=== PATIENT | female | born 1975 | race Two or more races ===

== ENCOUNTER 2022-12-21 22:17 | Emergency (ER) | payer BC, SELFPAY ==
[2022-12-21 22:28] VITALS: BP 140/90; PULSE 81; RESP 16; TEMP 36.7; O2SAT 99; BMI 30.3
--- NOTE | 2022-12-21 23:08 | CT_ITS ---
The [address] [address] Patient Name: ALANIS LEE MRN: [id number] date: 1975 Sex: F Assigned Patient Location: ER Current Patient Location: ER Accession/Order Number: [id number] Exam Date: 12/21/2022 23:59 Report Date: 12/22/2022 00:33 At the request of: CELE MARKER Procedure: CT abdomen pelvis w con EXAM: CT abdomen pelvis w con HISTORY: Abdominal pain, nausea, back pain. COMPARISON: CT abdomen pelvis 12/05/2019 TECHNIQUE: Multiple axial views CT abdomen pelvis after administration of 100 mL Omnipaque 300 IV contrast. Coronal and sagittal reformats. FINDINGS: Visualized lung bases and cardiac apex are unremarkable. Small hiatal hernia. Stomach is underdistended. No perigastric inflammatory stranding. Liver, gallbladder, pancreas, spleen, adrenal glands, kidneys, urinary bladder, appendix, and other pelvic structures are unremarkable. Uterus is surgically absent. Bilateral ureteral jets within the urinary bladder are seen on the delayed images. Moderate amount of stool within the right large bowel. No evidence for small bowel obstruction, large ascites, or free air. No acute bony abnormality. IMPRESSION: No radiopaque renal/ureteral/urinary bladder stone, hydronephrosis, or perinephric fluid collection. No striated nephrogram of the bilateral renal kidneys. No urinary bladder wall thickening/perivesical stranding. Small hiatal hernia. Electronically authenticated by: NAVA OSMAN Date: 12/22/2022 00:33
[2022-12-21] MEDS: ONDANSETRON PF 4 MG/2 ML VIAL IV (23:34)
[2022-12-21] MEDS: 0.9 % SODIUM CHLORIDE 1,000 ML 100 ML IV (23:34)
[2022-12-21] MEDS: KETOROLAC TROMETHAMINE 30 MG/ML VIAL IVP (23:34)
[2022-12-21 23:39] LABS: Basophils Absolute Auto 0.1 10^3/uL (0.0-0.1); Basophils Percent Auto 0.6 % (0.2-2.0); Eosinophils Absolute Auto 0.2 10^3/uL (0.0-0.7); Eosinophils Percent Auto 2.2 % (0.9-7.0); Hematocrit 37.5 % (36.0-48.0); Hemoglobin 12.9 g/dL (12.0-16.0); Immature Granulocytes Abs Auto 0.02 10^3/uL (0.00-0.03); Immature Granulocytes Pct Auto 0.3 % (0.0-0.5); Lymphocytes Absolute Auto 1.6 10^3/uL (1.2-3.8); Lymphocytes Percent Auto 21.1 % (20.5-60.0); Mean Corpuscular HGB Conc 34.4 g/dL (29.9-35.2); Mean Corpuscular Hemoglobin 31.2 pg (26.7-34.0); Mean Corpuscular Volume 90.6 fL (81.0-99.0); Mean Platelet Volume 10.9 fL (9.5-13.5); Monocytes Absolute Auto 0.9 10^3/uL (0.3-0.8); Monocytes Percent Auto 11.3 % (1.7-12.0); Neutrophils Percent Auto 64.5 % (43.0-75.0); Platelet Count 278 10^3/uL (150-450); Red Blood Count 4.14 10^6/uL (4.20-5.40); Red Cell Distribution Width 13.9 % (11.0-15.0); White Blood Count 7.7 10^3/uL (4.0-11.0)
[2022-12-21 23:42] LABS: HCG Qualitative Urine* NEGATIVE (NEGATIVE)
[2022-12-21 23:57] LABS: Lactate/Lactic Acid 0.8 mmol/L (0.4-2.0)
[2022-12-21 23:58] LABS: Alanine Aminotransferase 13 U/L (14-59); Albumin Globulin Ratio 0.9; Albumin Level 3.6 g/dL (3.4-5.0); Alkaline Phosphatase 48 U/L (46-116); Aspartate Amino Transferase 14 U/L (15-37); BUN Creatinine Ratio 8.7; Bilirubin Direct 0.1 mg/dL (0.0-0.2); Bilirubin Total 0.3 mg/dL (0.2-1.0); Calcium 8.9 mg/dL (8.5-10.1); Carbon Dioxide 24.5 mmol/L (21.0-32.0); Chloride 98 mmol/L (98-107); Estimated GFR (African America >60 (>=60); Estimated GFR (Non-African Ame >60 (>=60); Globulin 4.1 g/dL; Glucose 96 mg/dL (74-106); Potassium 3.5 mmol/L (3.5-5.1); Sodium 133 mmol/L (136-145); Total Protein 7.7 g/dL (6.4-8.2); Troponin I High Sensitivity 4.7 pg/mL (4.0-51.3)
--- NOTE | 2022-12-22 | ED.GENADUL1 ---
HPI - General Adult General Chief complaint: Abdominal Pain Stated complaint: Abdominal PAIN Time Seen by Provider: 12/21/22 22:50 Source: patient Mode of arrival: walk-in Limitations: no limitations History of Present Illness HPI narrative: This 47-year-old female presents for evaluation of generalized abdominal pain and cramping with low back pain, mild shortness of breath and nausea with a dry mouth. The patient states that she recently returned from [place]. After coming back from [place] she had a urinary tract infection with blood in her urine. She is currently being treated with Bactrim. She has not had a fever and states that her urine has cleared up however she has severe nausea with abdominal cramping and low back pain. She has not had a fever. She denies any chest pain. She does not smoke. She is not on control. She has no lower extremity pain or swelling. She states the abdominal cramping did start prior to going to [place]. She was recently started on Adipex as well. She feels that she is not tolerating the Adipex well and may need to stop taking it. Onset (ago): day(s) (2 weeks of abd pain, 1 day of nausea) Location: Reports abdomen Radiation: Reports back Severity: moderate Quality: Reports constant and other (cramping) Pain Consistency: Reports intermittent Relieving factors: Reports none Related Data Allergies Allergy/AdvReac Type Severity Reaction Status Date / Time No Known Drug Allergies Allergy Verified 12/21/22 22:33 Review of Systems ROS Status of ROS 10 or more systems reviewed and unremarkable except as noted in history and below Exam Constitutional Vital Signs - 24 hr 12/21/22 22:28 Temperature 98.1 F Pulse Rate [Monitor] 81 Respiratory Rate 16 Blood Pressure [Left Arm] 140/90 H Pulse Oximetry 99 Oxygen Delivery Method Room Air Documenting provider has reviewed patient's vital signs: yes Common normals: no apparent distress (Uncomfortable but nontoxic-appearing female, no resp distress) General appearance: cooperative, well kempt and well developed HENMT Common normals: normocephalic and head/scalp atraumatic Eye Common normals: PERRL and conjunctivae normal Respiratory Common normals: normal respiratory effort, no retractions, no use of accessory muscles and clear to auscultation bilaterally Effort & inspection: able to speak in complete sentences Cardio Common normals: regular rate, regular rhythm, S1 normal heart sound, S2 normal heart sound, no gallops, no clicks, no murmurs and no rub GI Common normals: soft to palpation and non-tender (Generalized abdominal tenderness with no focal rebound guarding or rigidity) Inspection: other (dry heaves) Auscultation: normoactive bowel sounds Back & Pelvis Common normals: no CVA tenderness, thoracic and lumbar spine normal to inspection, no thoracic nor lumbar tenderness and thoraco-lumbar ROM normal Extremity Common normals: normal to inspection, full ROM and normal capillary refill Neuro Common normals: oriented x3, CN's II-XII intact bilaterally, moves all extremities, no focal motor deficits and no sensory deficits noted Psych Common normals: mental status grossly normal, thought process normal, cooperative, affect normal and speech normal Course Vital Signs Vital signs: Vital Signs Temperature 98.1 F 12/21/22 22:28 Pulse Rate 81 12/21/22 22:28 Respiratory Rate 16 12/21/22 22:28 Blood Pressure 140/90 H 12/21/22 22:28 Pulse Oximetry 99 12/21/22 22:28 Oxygen Delivery Method Room Air 12/21/22 22:28 Temperature 98.1 F 12/21/22 22:28 Pulse Rate 81 12/21/22 22:28 Respiratory Rate 16 12/21/22 22:28 Blood Pressure 140/90 H 12/21/22 22:28 Pulse Oximetry 99 12/21/22 22:28 Oxygen Delivery Method Room Air 12/21/22 22:28 Medical Decision Making MDM Narrative Medical decision making narrative: This 47-year-old female presents for evaluation of multiple complaints. She has been having abdominal cramping for the past several weeks and now is having low back pain. He is currently on Bactrim after she had an episode of hemorrhagic cystitis. She has not had a fever. She does have nausea but has not been vomiting. She states her mouth is extremely dry. She was recently placed on Adipex by her family physician. She states that while in her white she was scuba diving snorkeling, jumping off a water falls and other sports related activities. She states this is not uncommon for her and does not feel that she was injured causing her back pain. She has not had any diarrhea but does have chronically loose stools. Upon arrival she did appear to be uncomfortable holding a pillow to her belly and rocking back and forth. My thought was that she may have a kidney infection, kidney stone or complicated urinary tract infection. An IV was placed and she was given IV fluids, Zofran and Toradol. This provided her minimal relief however she was driving and she was remedicated with Tylenol. She did have mild improvement in her symptoms after the Tylenol. Routine labs are reviewed. She has a normal d-dimer. Normal lactic acid and normal lipase. Normal white count and hemoglobin. She has normal electrolytes. Her urine does not appear to be infected at this time. CT scan of the abdomen and pelvis which was read by radiology does not show any sign of kidney infection, kidney stone or other intra-abdominal or pelvic abnormality. The results of the labs and CT scan were discussed with her and she was given a copy of the CT scan to share with her family physician. She still appears to be moderately uncomfortable. I offered her hospitalization for further evaluation and treatment but she declines. She wishes to be released at this time because she has to go to work in the morning. She will be dispensed 2 [place] prior to discharge as well as given an extra dose of Zofran and a dose of oral Bentyl. She will be discharged home with prescription for [place], Bentyl and Zofran. I encouraged her to drink plenty of fluids. She will continue taking her Bactrim as was prescribed by her PCP for her hemorrhagic cystitis. Differential Diagnosis Differential Diagnosis: Kidney stone, pyelonephritis, complicated urinary tract infection Lab Data Lab results reviewed: Yes I reviewed the patient's lab results Lab results narrative: Labs are normal, patient had a normal white count and hemoglobin. Electrolytes are normal. Lipase is normal. Urinalysis is negative for infection but does show mild ketones.D-dimer is normal. Labs: Lab Results 12/21/22 12/22/22 Range/Units 23:25 00:00 WBC 7.7 (4.0-11.0) 10^3/uL RBC 4.14 L (4.20-5.40) 10^6/uL Hgb 12.9 (12.0-16.0) g/dL Hct 37.5 (36.0-48.0) % MCV 90.6 (81.0-99.0) fL MCH 31.2 (26.7-34.0) pg MCHC 34.4 (29.9-35.2) g/dL RDW 13.9 (11.0-15.0) % Plt Count 278 (150-450) 10^3/uL MPV 10.9 (9.5-13.5) fL Neut % (Auto) 64.5 (43.0-75.0) % Lymph % (Auto) 21.1 (20.5-60.0) % [place] % (Auto) 11.3 (1.7-12.0) % Eos % (Auto) 2.2 (0.9-7.0) % Baso % (Auto) 0.6 (0.2-2.0) % Neut # (Auto) 5.0 (1.4-6.5) 10^3/uL Lymph # (Auto) 1.6 (1.2-3.8) 10^3/uL [place] # (Auto) 0.9 H (0.3-0.8) 10^3/uL Eos # (Auto) 0.2 (0.0-0.7) 10^3/uL Baso # (Auto) 0.1 (0.0-0.1) 10^3/uL Abs Immat Gran (auto) 0.02 (0.00-0.03) 10^3/uL Imm/Tot Granulo (auto) 0.3 (0.0-0.5) % D-Dimer 0.50 (<=0.59) mg/L FEU Sodium 133 L (136-145) mmol/L Potassium 3.5 (3.5-5.1) mmol/L Chloride 98 (98-107) mmol/L Carbon Dioxide 24.5 (21.0-32.0) mmol/L Anion Gap 14.0 BUN 8.0 (7.0-18.0) mg/dL Creatinine 0.92 (0.55-1.02) mg/dL Est GFR ( Amer) >60 (>=60) Est GFR (Non-Af Amer) >60 (>=60) BUN/Creatinine Ratio 8.7 Glucose 96 (74-106) mg/dL Lactate 0.8 (0.4-2.0) mmol/L Calcium 8.9 (8.5-10.1) mg/dL Total Bilirubin 0.3 (0.2-1.0) mg/dL Direct Bilirubin 0.1 (0.0-0.2) mg/dL AST 14 L (15-37) U/L ALT 13 L (14-59) U/L Alkaline Phosphatase 48 (46-116) U/L Troponin I High Sens 4.7 (4.0-51.3) pg/mL Total Protein 7.7 (6.4-8.2) g/dL Albumin 3.6 (3.4-5.0) g/dL Globulin 4.1 g/dL Albumin/Globulin Ratio 0.9 Lipase 67.0 L (73.0-393.0) U/L Urine Color Lt. yellow (YELLOW) Urine Clarity Clear (CLEAR) Urine pH 6.0 (5.0-9.0) Ur Specific [place] 1.010 (1.005-1.025) Urine Protein Negative (NEG/TRACE) mg/dL Urine Glucose (UA) Negative (NEGATIVE) mg/dL Urine Ketones 15 A (NEGATIVE) mg/dL Urine Occult Blood Negative (NEGATIVE) Urine Nitrite Negative (NEGATIVE) Urine Bilirubin Negative (NEGATIVE) Urine Urobilinogen 0.2 (0.2-1.0) EU/dL Ur Leukocyte Esterase Negative (NEGATIVE) Urine HCG, Qual Negative (NEGATIVE) Discharge Plan Discharge Chief Complaint: Abdominal Pain Clinical Impression: Low back pain, Abdominal pain Patient Disposition: Home, Self-Care Time of Disposition Decision: 01:58 Instructions: Acute Low Back Pain (ED), Abdominal Pain (ED), Back Pain (ED) Stand Alone Forms: Portal Instructions Referrals: Ange Luque MD [Primary Care Provider] - 1 week
--- NOTE | 2022-12-22 01:13 | PC.NURSE ---
Pt laying on cart States that she is still having abd pain #7 on scale. pt aware that awaiting some of the test results
[2022-12-22 01:30] LABS: Bilirubin Urine NEGATIVE (NEGATIVE); Blood Urine NEGATIVE (NEGATIVE); Clarity Urine CLEAR (CLEAR); Color Urine LT. YELLOW (YELLOW); Glucose Urine UA NEGATIVE (NEGATIVE); Ketones Urine 15 mg/dL (NEGATIVE); Leukocyte Esterase Urine NEGATIVE (NEGATIVE); Nitrite Urine NEGATIVE (NEGATIVE); Protein Urine NEGATIVE (NEG/TRACE); Urine Microscopic Indicated NO; Urobilinogen Urine 0.2 EU/dL (0.2-1.0)
[2022-12-22] MEDS: HYDROCODONE/ACETAMINOPHEN 5-325 MG TABLET 2 TAB PO (02:19)
[2022-12-22] MEDS: DICYCLOMINE HCL 10 MG CAPSULE 20 MG PO (02:19)
== END 2022-12-22 02:45 | disposition home or self-care (01) ==
PROVIDERS: Emergency Provider Emergency Medicine; PCP Family Medicine
DX: R10.9 Unspecified abdominal pain (principal); M54.50 Low back pain, unspecified; Z87.440 Personal history of urinary (tract) infections
CPT/HCPCS: 36415; 74177; 80053; 80076; 81003; 83605; 83690; 84484; 84703; 85025; 85378; 96374; 96375; 99285

== ENCOUNTER 2025-05-22 07:00 | Outpatient (OUT) | payer OTHER, SELFPAY ==
--- OUTSIDE RECORDS SUMMARY | 2024-04-02 11:15 | XMS_ITS | Continuity of Care Document ---
Author Organization [facility] Address [address] [place] [address] Phone Care Team Providers Care Supervisor Securities V[employer] Name Role Phone Gelacio Lucio Unavailable Unavailable Procedures Procedure Date IMMUNIZATION ADMIN FLU VACCINE NO PRESERV 3 & > Covid-19 Vaccine Administration 024 Covid-19 Vaccine, 50 Mcg Moderna 12y Plu s IMMUNIZATION ADMIN HEP B VACCINE, ADULT, IM ROUTINE VENIPUNCTURE Covid-19 Vaccine Administration 024 Covid-19 Vaccine, 50 Mcg Moderna 12y Plu s IMMUNIZATION ADMIN TDAP VACCINE >7 IM Advance Directives Directive Yes / No Effective Date File Name No Information Encounters Encounter Description Practice Location Reason(s) For Visit Diagnoses Date Provider Providers Copied on Encounter [facility], [address] [place] [address], [id number] , [place] tel: [phone] [facility] No Information 4 Visci DO Gelacio. [address] [place] [address], [id number] , [place]. tel: [phone] [facility], [address] [place] [address], [id number] , [place] tel: [phone] [facility] No Information 4 Visci DO Gleacio. [address] [place] [address], [id number] , [place]. tel: [phone] [facility], [address], [place], [id number] , [place] tel:[phone] [facility] lab draw (chief complaint) Encounter for screening for respiratory tuberculosisEncounter for antibody response examinationEncounter for screening for other viral diseases Mathewi Gelacio. [address] [place] [address], [id number] , [place]. tel:[phone] Family History Family Member Type Diagnosis Age At Onset No Information Immunizations Vaccine Date Status Comments Fluarix/Flulaval administered Source: New Immunization Record Spikevax 12y+ administered Source: New Im munization Record Hep B, adult, 3 dose administered Source: New Immunization Record Tdap (Boostrix) administered Source: New Immunization Record Spikevax 12y+ administered Source: New Im munization Record Payers Payer name Insurance type Covered green party ID Authorramiroa tileno(s) [employer] [place] CI [id number] [employer] [place] CI [id number] Self Pay Cap [id number] Self Pay Cap [id number] Self Pay Cap [id number] Social History Type Description Quantity Date Captured Comments Alcohol Use Details Unknown Caffeine Use Details Unknown Tobacco Use Status No Information Smoking Status No Information Sex Female Sexual Orientation Straight or heterosexual Dec Gender Identity Female Chief Complaint And Reason For Visit No Information Reason For Referral Reason For Referral No Information Plan Of Treatment Date Type Action Status Goal Hep A. Due on du e Goal HPV. Due on due Goal Lipid panel. Due on 024 due Goal Depression screening. Due on due Goal Tdap Vaccine. Due on 2033 due Goal Unhealthy drug use screening . Due on due Goal PRAPARE ASSESSMENT. Due on O due Goal Influenza vaccine. Due on Oc t due Goal Hepatitis C screening. Due o n due Goal Tdap due Goal Hep A. Due on du e Goal Lipid panel. Due on due Goal Unhealthy drug use screening . Due on due Goal Tdap due Goal Hepatitis C screening. Due o n due Goal Tdap Vaccine. Due on 2033 due Goal HPV. Due on due Goal Depression screening. Due on due Goal Influenza vaccine. Due on Au due Goal PRAPARE ASSESSMENT. Due on A due Goal Tdap Vaccine. Due on 2023 due Goal Tdap. Due on due Goal HPV. Due on due Goal Depression screening. Due on due Goal Hepatitis C screening. Due o n due Goal Influenza vaccine. Due on due Goal Unhealthy drug use screening . Due on due Goal PRAPARE ASSESSMENT. Due on J due Goal Lipid panel. Due on due History Of Present Illness Encounter Date Complaint History Of Prese nt Illness lab draw Patient here for pre-emplyment lab draw. Blaine RN Functional Status Date Functional Assessmen t No Information Instructions Date Instruction Additional Infor mation No Information Assessments Type Assessment Date No Information Patient Care Teams Name Effective Dates (start - stop) Status Members No Information
--- OUTSIDE RECORDS SUMMARY | 2024-04-02 11:15 | XMS_ITS | Continuity of Care Document ---
Author Organization [facility] Address [address] [place] [address] Phone Care Team Providers Care Environmental Health Nurse Name Role Phone Gelacio Lucio Unavailable Unavailable [...] Diagnoses Date Provider Providers Copied on Encounter [facility], [address] [place] [address], [id number] , [place] tel: [phone] [facility] No Information 4 Visci DO Gelacio. [address] [place] [address], [id number] , [place]. tel: [phone] [facility], [address] [place] [address], [id number] , [place] tel: [phone] [facility] No Information 4 Visci DO Gelacio. [address] [place] [address], [id number] , [place]. tel: [phone] [facility], [address] [place], [place], [id number] , [place] tel:[phone] [facility] lab draw (chief complaint) Encounter for screening for respiratory tuberculosisEncounter for antibody response examinationEncounter for screening for other viral diseases Mathewi DO Gelacio. [address] [place], [place], [id number] , [place]. tel:[phone] Family History Family Member Type Diagnosis Age At Onset No Information Immunizations Vaccine Date Status Comments Fluarix/Flulaval administered Source: New Immunization Record Spikevax 12y+ administered Source: New Im munization Record Hep B, adult, 3 dose administered Source: New Immunization Record Tdap (Boostrix) administered Source: New Immunization Record Spikevax 12y+ administered Source: New Im munization Record Payers Payer name Insurance type Covered alliance party ID Authorramiroa tileno(s) [employer] [place] CI [id number] [employer] [place] CI [id number] Self Pay Cap [id number] Self Pay Cap [id number] Self Pay Cap [id number] Social History Type Description Quantity Date Captured Comments Alcohol Use Details Unknown Caffeine Use Details Unknown Tobacco Use Status No Information Smoking Status No Information Sex Female Sexual Orientation Straight or heterosexual Dec Gender Identity Female Chief Complaint And Reason For Visit No Information Reason For Referral Reason For Referral No Information Plan Of Treatment Date Type Action Status Goal Tdap due Goal Hep A. Due on du e Goal HPV. Due on due Goal Lipid panel. Due on 024 due Goal Depression screening. Due on due Goal Tdap Vaccine. Due on 2033 due Goal Unhealthy drug use screening . Due on due Goal PRAPARE ASSESSMENT. Due on O ct due Goal Influenza vaccine. Due on Oc t due Goal Hepatitis C screening. Due o n due Goal Hep A. Due on du [...]
--- OUTSIDE RECORDS SUMMARY | 2024-05-19 03:15 | XMS_ITS ---
Author Organization [facility] Address [address] [place] [address] Care Team Providers Care Program Analyst Name Role Phone Espinoza Aviles Primary Care Provider REASON FOR VISIT 3 month f/u Social History Sex Assigned At : Social History Observation Description Sex Assigned At Female Encounters Encounter Location Date Provider Diagnosis [address] [place] [address] 2023 Espinoza Aviles Plan Of Treatment No Information Progress Notes * ALANIS WILLIS LDOB: 5 (50 yo F)Acc No.[id number]:05/19/2024 Behavioral Health Patient: Sharon ALANIS KINGSTON :?CHRISTIANO SiddiquiPDOB:1975???Age:49 Y???Sex: FemaleDate:05/19/2024hone:[phone]:[address] [place] [id number] Subjective: * Chief Complaints: * 3 month f/u Billing Information: * Procedure Codes: * Electronic signature of HEMANT Siddiqui on 05/19/2025 at 02:01 PM ESTSign off status: Pending * Provider: HEMANT Hodges Date: 07/19/2023 Generated for Printing/Faxing/eTransmitting on:?05/19/2025 02:01 PM EST
--- OUTSIDE RECORDS SUMMARY | 2024-05-19 03:15 | XMS_ITS ---
Author Organization [facility] Address [address] [place] [address] Care Team Providers Care Security Solutions Engineer Name Role Phone Espinoza Aviles Primary Care Provider [phone] REASON FOR VISIT 3 month f/u Social History Sex Assigned At : Social History Observation Description Sex Assigned At Female Encounters Encounter Location Date Provider Diagnosis [address] [place] [address] 2023 Espinoza Aviles Plan Of Treatment No Information Progress Notes * ALANIS WILLIS LDOB: [birth year] (50 yo F)Acc No.[id number]:05/19/2024 Behavioral Health Patient: Sharon ALANIS KINGSTON :?CHRISTIANO SiddiquiPDOB:1975???Age:49 Y???Sex: FemaleDate:05/19/2024hone:[phone]:[address] [place] [id number] Subjective: * Chief Complaints: * 3 month f/u Billing Information: * Procedure Codes: * Electronic signature of HEMANT Siddiqui on 05/22/2025 at 07:03 AM ESTSign off status: Pending * Provider: HEMANT Hodges Date: 07/19/2023 Generated for Printing/Faxing/eTransmitting on:?05/22/2025 07:03 AM EST
--- OUTSIDE RECORDS SUMMARY | 2025-05-07 15:20 | XMS_ITS | Encounter Summary ---
Author Organization [facility] Address [address] [facility] [place] [address] Care Team Providers Care Senior Underwriter Name Role Phone Ange Luque MD Primary Care Provider [phone] Reason for Visit * ReasonCommentsConsultDiscuss hormones Encounter Details DateTypeDepartmentCare Team (Latest Contact Info)Phcecervypm51/06/2025 3:20 PM ESTOffice Visit [facility] [place] OBJES[facility] [address] [place] [address] Soledad Sarmiento PA [address] [place] [address] Hormone disturbance; Hormone disorder Social History Tobacco UseTypesPacks/DayYears UsedDateSmoking Tobacco: Never Assessed CommentsUnknownSex and Gender InformationValueDate RecordedSex Assigned at Not on fileLegal HsxYzkhph92/15/2023 11:47 PM EDTGender IdentityNot on file Sexual OrientationNot on filedocumented as of this encounter Progress Notes * LILLI Langford - 05/07/2025 3:20 PM EST Reason for Appointment: Patient ID: Divya Preciado is a 50 y.o. female who presents for Consult (Discuss hormones) Patient presents today for to discuss hormone issues MEDICATIONS Current Outpatient Medications Medication Instructions buPROPion XL (Wellbutrin XL) 300 MG 24 hr tablet ALLERGIES No Known Allergies PROBLEMS Active Ambulatory Problems Diagnosis Date Noted No Active Ambulatory Problems Resolved Ambulatory Problems Diagnosis Date Noted No Resolved Ambulatory Problems No Additional Past Medical History HISTORY PAST MEDICAL HISTORY SOCIAL HISTORY No past medical history on file. Social History Tobacco Use Smoking status: Not on file Smokeless tobacco: Not on file Substance Use Topics Alcohol use: Not on file Drug use: Not on file FAMILY HISTORY No family history on file. SURGICAL HISTORY No past surgical history on file. REVIEW OF SYSTEMS Review of Systems: Review of Systems Constitutional: Negative. HENT: Negative. Eyes: Negative. Respiratory: Negative. Cardiovascular: Negative. Gastrointestinal: Negative. Genitourinary: Negative. Musculoskeletal: Negative. Skin: Negative. Neurological: Negative. All other systems reviewed and are negative. Hematological: Negative. Endocrine: Negative. Allergic/Immunologic: Negative. OBJECTIVE Objective: Physical Exam Constitutional: Appearance: Normal appearance. She is normal weight. HENT: Head: Normocephalic. Cardiovascular: Rate and Rhythm: Normal rate. Pulses: Normal pulses. Pulmonary: Effort: Pulmonary effort is normal. Breath sounds: Normal breath sounds. Abdominal: Palpations: Abdomen is soft. Musculoskeletal: General: Normal range of motion. Neurological: General: No focal deficit present. Mental Status: She is alert and oriented to person, place, and time. Psychiatric: Mood and Affect: Mood normal. Behavior: Behavior normal. Thought Content: Thought content normal. Judgment: Judgment normal. Vitals and nursing note reviewed. Vitals: There is no height or weight on file to calculate BMI. BP: No LMP recorded. ASSESSMENT & PLAN ICD-10-CM 1. Hormone disturbance E34.9 Patient presents to discuss hormone imbalances. She states she is having more symptoms of irritability and hot flashes. We discussed several options including drawing labs and starting on medications. She is going to fill out buderer packet and start on 0.5mg of estradiol. Documented by Adali Gonzalez CST on behalf of: LILLI Langford documented in this encounter Plan of Treatment DateTypeDepartmentCare Team (Latest Contact Info)Jfyefcbdvew09/22/2026 9:00 AM ESTProcedure Visit [facility] BURNSGYBailey [address] [facility] [place] [phone] Soledad Sarmiento PA [address] [place], [place] [address] NameTypePriorityAssociated DiagnosesOrder ScheduleEstradiolLabRoutine Hormone disorder Ordered: 05/07/2025EstroneLabRoutine Hormone disorder Ordered: 05/07/2025ortisol, freeLabRoutine Hormone disorder Expected: 05/07/2025 (Approximate), Expires: 05/07/2026DHEA-sulfateLabRoutine Hormone disorder Ordered: 05/07/2025Sex hormone binding globulinLabRoutine Hormone disorder Ordered: 05/07/2025Insulin, totalLabRoutine Hormone disorder Expected: 05/07/2025 (Approximate), Expires: 05/07/2026Serotonin serumLabRoutine Hormone disorder Expected: 05/07/2025 (Approximate), Expires: 05/07/2026TSHLabRoutine Hormone disorder Ordered: 05/07/2025T4, freeLabRoutine Hormone disorder Ordered: 05/07/2025T3, reverseLabRoutine Hormone disorder Ordered: 05/07/2025ProgesteroneLabRoutine Hormone disorder Ordered: 05/07/2025Vitamin D 1,25 dihydroxyLabRoutine Hormone disorder Ordered: 05/07/2025FerritinLabRoutine Hormone disorder Ordered: 05/07/2025T3, freeLabRoutine Hormone disorder Ordered: 05/07/2025ThyroglobulinLabRoutine Hormone disorder Expected: 05/07/2025 (Approximate), Expires: 05/07/2026Thyroglobulin AntibodyLab Routine Hormone disorder Expected: 05/07/2025 (Approximate), Expires: 05/07/2026Thyroid peroxidase antibodyLabRoutine Hormone disorder Ordered: 05/07/20255610U3CfqGezhmta Hormone disorder Expected: 05/07/2025 (Approximate), Expires: 05/07/2026TESTOSTERONE, FREELab Routine Hormone disorder Ordered: 05/07/2025Testosterone, free, totalLabRoutine Hormone disorder Ordered: 05/07/2025Hemoglobin D9qBwuCxuziam Hormone disorder Ordered: 05/07/2025Glucose, randomLabRoutine Hormone disorder Expected: 05/07/2025 (Approximate), Expires: 05/07/2026-peptideLabRoutine Hormone disorder Expected: 05/07/2025 (Approximate), Expires: 05/07/2026documented as of this encounter Visit Diagnoses Diagnosis Hormone disturbance Unspecified endocrine disorder Hormone disorder Unspecified endocrine disorder documented in this encounter Care Teams Team MemberRelationshipSpecialtyStart DateEnd Date Ange Luque MD [facility] [place] [address] PCP - GeneralFamily Itkhrmik07/6/25documented as of this encounter
--- OUTSIDE RECORDS SUMMARY | 2025-05-19 14:00 | XMS_ITS | Clinical Summary ---
Author Organization [facility] Address [address] [facility] [place] [address] Care Team Providers Care Manager Pe Name Role Phone Ange Luque MD Primary Care Provider [phone] Allergies No known active allergies Medications MedicationSigDispense QuantityRefillsLast FilledStart DateEnd DateStatus buPROPion XL (Wellbutrin XL) 300 MG 24 hr tablet 5Active estradiol (Estrace) 0.5 MG tablet Indications:Hormone disorderTake 1 tablet (0.5 mg) by mouth Daily Take 1 tablet by mouth for 30 days 30 tablet 506Active Encounters DateTypeDepartmentCare PokqRrejmxnnfhl52/17/2025Telephone [facility] Rita LAZARO [address] [place] [address] OzzyMarie [place] 05/07/2025 3:20 PM ESTOffice Visit NOMGasper LAZARO [address] [place] [address] Soledad Sarmiento PA Hormone disturbance; Hormone nnydvkur92/06/2025amboo flowsheet NOM[facility]asper LAZARO [address] [place] [address] Soledad Sarmiento PA from Last 3 Months Social History Tobacco UseTypesPacks/DayYears UsedDateSmoking Tobacco: Never Assessed CommentsUnknownSex and Gender InformationValueDate RecordedSex Assigned at Not on fileLegal OkcSmancx32/15/2023 11:47 PM EDTGender IdentityNot on file Sexual OrientationNot on file Plan of Treatment DateTypeDepartmentCare Team (Latest Contact Info)Mazyxosykgq25/22/2026 9:00 AM ESTProcedure Visit [facility] Rita LAZARO [address] [place] [address] Soledad Sarmiento PA [address] [facility] [place] [address] Health MaintenanceDue DateLast DoneCommentsCT Lpkfwsfjzxay1975Colonoscopy 1975Colorectal Cancer Keviaujvu1975FIT-DNA1975FIT1975 FOBT1975 9678Aesqahhkkmydl1975Pap Smear01/27/1996Cervical Cancer Kfhtwiggx29/28/2005HPV/Vakjqi9701/26/20053157Fshvbvvhn12/28/2015COVID-19 Vaccine ( season)/08/2021, 01/11/2021Influenza Vaccine (#1)2025 04/02/2024neumococcal Vaccine: Pediatrics (0 to 5 Years) and At-Risk Patients (6 to 64 Years)Aged OutNo longer eligible based on patient's age to complete this topic Insurance Care Teams Team MemberRelationshipSpecialtyStart DateEnd Date Ange Luque MD [address] [place] [address] PCP - GeneralFamily Cdtsfvtt81/6/25
--- OUTSIDE RECORDS SUMMARY | 2025-05-19 14:00 | XMS_ITS | Encounter Summary ---
Author Organization [facility] Address [address] [place] [address] Care Team Providers Care Woods Manager Name Role Phone Ange Luque MD Primary Care Provider [phone] Encounter Details DateTypeDepartmentCare Team (Latest Contact Info)Lcuxfpsjddt17/17/2025Telephone [facility] [place] [facility] [address] [place] [address] Marie Preciado MA [address] [facility] [place] [address] Social History Tobacco UseTypesPacks/DayYears UsedDateSmoking Tobacco: Never Assessed CommentsUnknownSex and Gender InformationValueDate RecordedSex Assigned at Not on fileLegal BnlTpvsgo05/15/2023 11:47 PM EDTGender IdentityNot on file Sexual OrientationNot on filedocumented as of this encounter Miscellaneous Notes * Telephone Encounter - Marie Preciado MA - 05/18/2025 1:10 PM EST Pt called asking what or where the labs are to be done. And that the buderer packet is complete. I called pt back and left detailed message on VM. To have labs drawn at [facility] that were ordered on 05/07/2025 as soon as possible and if the packet is complete to please drop it off at our office and we will give it to Mary Lopez. However, we can not go forward w/out the labs drawn. To please call office back w/any questions. documented in this encounter Plan of Treatment DateTypeDepartmentCare Team (Latest Contact Info)Vuhzoomomec54/22/2026 9:00 AM ESTProcedure Visit [facility] Rita LAZARO [address] [place] [address] Soledad Sarmiento PA [address] [facility] [address] [place], [place] [address] documented as of this encounter Visit Diagnoses Not on filedocumented in this encounter Care Teams Team MemberRelationshipSpecialtyStart DateEnd Date Ange Luque MD [address] [facility] [place] [address] PCP - GeneralFamily Mlpfkfzt26/6/25documented as of this encounter
--- OUTSIDE RECORDS SUMMARY | 2025-05-19 14:01 | XMS_ITS | Encounter Summary ---
Author Organization [facility] Address [address] [facility] [place] [address] Care Team Providers Care Fitter Tacker Name Role Phone Ange Luque MD Primary Care Provider [phone] Encounter Details DateTypeDepartmentCare Team (Latest Contact Info)Gosjjiebuhs94/06/2025amboo flowsheet NOMGasper LAZARO [address] [place] [address] Soledad Sarmiento PA [address] [facility] [address] [place], [facility] Social History Tobacco UseTypesPacks/DayYears UsedDateSmoking Tobacco: Never Assessed CommentsUnknownSex and Gender InformationValueDate RecordedSex Assigned at Not on fileLegal XdkRatspj99/15/2023 11:47 PM EDTGender IdentityNot on file Sexual OrientationNot on filedocumented as of this encounter Plan of Treatment DateTypeDepartmentCare Team (Latest Contact Info)Xaxoyngktkx54/22/2026 9:00 AM ESTProcedure Visit [facility] Rita LAZARO [address] [place] [address] Soledad Sarmiento PA [address] [facility] [place] [address] documented as of this encounter Visit Diagnoses Not on filedocumented in this encounter Care Teams Team MemberRelationshipSpecialtyStart DateEnd Date Ange Luque MD [address] [place] [address] PCP - GeneralFamily Pjvhgzxs53/6/25documented as of this encounter
--- OUTSIDE RECORDS SUMMARY | 2025-05-19 14:02 | XMS_ITS | Patient Health Record ---
Author Organization [facility] Address [address] [place] [address] Care Team Providers Care Harness Rigger Name Role Phone Espinoza Aviles Primary Care Provider Alma, Edith Unavailable [phone] Allergies No Known Allergies Reason For Referral No Information Medications Medication SIG (Take, Route, Frequency, Duration) Notes Start Date End Date Status Topiramate 50 MG Tablet 1 tablet Orally Once a d ay; Duration: 21 days 01/21/2024Not-Taking/PRNTrintellix 10 MG Tablet1 tablet Orally Once a day; Duration: 30 days10/29/2023Not-Taking/PRNFLUoxetine HCl 20 MG Tablet1 tablet Orally Once a day; Duration: 30 day(s)01/10/2024Not-Taking/PRNTrintellix 20 MG Tablet1 tablet Orally Once a day; Duration: 30 daysstart after completing 10mg dose10/29/2023Not-Taking/PRNVenlafaxine HCl ER 75 MG Capsule Extended Release 24 HourOral; Duration: 90 DaysNot-Taking/PRNWellbutrin XL 300 MG Tablet Extended Release 24 Hour1 tablet in the morning Orally Once a day; Duration: 90 days 02/12/2024ctive Social History Tobacco Use: Social History Observation Description Date Details (start date - stop date) Never Smoker NA - NA Sex Assigned At : Social History Observation Description Sex Assigned At Female Social History GeneralSocial InfoQuestionAnswerNotesDepression Screening (PHQ-9):Little interest or pleasure in doing thingsNearly every dayFeeling down, depressed, or hopelessNearly every dayTrouble falling or staying asleep, or sleeping too much Nearly every dayFeeling tired or having little energyNearly every dayPoor appetite or overeatingNot at allFeeling bad about yourself-or that you are a failure or have let yourself or your family downNearly every dayTrouble concentrating on things, such as reading the newspaper or watching television Nearly every dayMoving or speaking so slowly that other people could have noticed. Or the opposite being so fidgetyor restless that you have been moving around a lot more than usualMore than half the daysThoughts that you would be better off , or of hurting yourself in some wayNot at allTotal Score20 IntepretationSevere DepressionTobacco Use:Social InfoQuestionAnswerNotesTobacco Control (Standard)Tobacco use:Nonsmoker Problems Problem Type SNOMED Code ICD Code Onset Dates Problem Status W/U Status Risk Notes Problem Anxiety (16126403) Anxiety (F41.9) ActiveconfirmedProblemDepression (412067724)Depression (F32.9)Activeconfirmed ProblemMild major depression, single episode (07312899)Current mild episode of major depressive disorder without prior episode (F32.0)Activeconfirmed Vital Signs Heart Rate 74 /min 04/29/2025 Wegwgixu31 %04/29/2025lood pressure obqafgufa40 mm Hg04/29/20254597Umyvwg22 in 04/29/2025lood pressure ucrfjxis496 mm Hg04/29/20254934Ngsrgq328.0 lbs1MI 27.12 kg/m204/29/2025 Encounters Encounter Location Date Provider Diagnosis [facility] [address] [place] [address] 08/15/2024 [facility] [place] [address]/[facility] [place] [address] 01/06/2025[facility] [place] [address]/Kip [facility] [place] [address]/Kip SoviakCurrent mild episode of major depressive disorder without prior episode F32.0S [address] [place] [address]/Kip SoviakCurrent mild episode of major depressive disorder without prior episode F32.0S [address] [place] [address]/Tracey HyltonCurrent mild episode of major depressive disorder without prior episode F32.0 Assessments Encounter Date Diagnosis (ICD Code) Assessment Notes Treatment Notes Treatment Clinical Notes Section Notes 08/18/2024 Current mild episode of major depressive disorder without prior episode (ICD-10 - F32.0) Informed consent obtained: YES, we discussed the diagnosis/diagnoses, the treatment options, treatment(s) recommendations vs. no treatment. We discussed risks and benefits of treatment options, treatment recommendations vs. no treatment. Currently at low risk for self harm. Denies ongoing feelings of hopelessness. Denies ongoing suicidal ideation, intent or plan in session. Pharmacological management: Alternative medication plans were discussed with the patient and or guardian. All relevant and serious adverse effects were discussed. Standard precautions and potential benefits were discussed. Patient/Guardian consented to begin medication/ continue treatment plan. questions answered satisfactorily, agreeable to treatment plan Cont current treatment Tolerating meds well, compliant Call for problems Follow up 3 months Patient/Guardian will call sooner if symptoms worsen. Patient understands to go to the ER if neededif symptoms become severe. Crisis intervention plan was discussed and agreed upon. Patient/Guardian will call 911 in case of emergency. Emergency contact information was provided to the patient/guardian. 04/29/2025urrent mild episode of major depressive disorder without prior episode (ICD-10 - F32.0) denies needing refills today would like to wean off wellbutrin feels like it is not helping, she wants to have hormones checked to be put back on a HRT referred to [facility] that specilaizes in womens health and HRT to have hormones checked will continue wellbutrin until she gets lab results will call for f/u potential side effects were discussed as well as proper administration of medication. Pt verbalizesunderstanding. Pt is aware not to stop medication suddenly and to come to office to be weaned down,abrupt discontinuation can cause withdrawal symptoms. Stable mood today, no c/o SI/HI, if feelings occur pt to call 911/ER. Discussed coping mechanisms such as exercise, group therapy, and counseling. 05/21/2024urrent mild episode of major depressive disorder without prior episode (ICD-10 - F32.0) Plan Of Treatment No Information Insurance Providers Payer Name Payer Address Payer Phone Subscriber Number Group Number Insured Name Patient Relationship to Insured Coverage Start Date Coverage End Date [employer] [address] [place] [address] [id number] ALANIS WILLIS Self - patient [facility] the [facility] [address] [address] [place] [phone] [id number] WILLISelf - patient is the [id number] 2023[facility] [address] [place] [phone] [id number] WILLIS - patient is the [id number] Medical (General) History Medical History History ICD Code depression anxiety
--- OUTSIDE RECORDS SUMMARY | 2025-05-22 07:03 | XMS_ITS | Patient Health Record ---
Author Organization [employer] [facility] Address [address] [place] [address] Care Team Providers Care Home Improvement Contractor Name Role Phone Espinoza Aviles Primary Care Provider Alma, Edith Unavailable [phone] Allergies No Known Allergies Reason For Referral [...] Status W/U Status Risk Notes Problem Anxiety (86857502) Anxiety (F41.9) ActiveconfirmedProblemDepression (820886994)Depression (F32.9)Activeconfirmed ProblemMild major depression, single episode (45373238)Current mild episode of major depressive disorder without prior episode (F32.0)Activeconfirmed Vital Signs Heart Rate 74 /min 04/29/2025 Yxewwqvf82 %04/29/2025lood pressure qjpvmiyow72 mm Hg04/29/20257111Ekdspb22 in 04/29/2025lood pressure lqrbnsen372 mm Hg04/29/20257829Uvxqvs069.0 lbs1MI 27.12 kg/m204/29/2025 Encounters Encounter Location Date Provider Diagnosis [facility] [address] [place] [address] [facility]2024 [facility] [place] [address]/[facility] [place] [address] 01/06/2025[facility] [place] [address]/Kip [facility]iakF[facility] [address] [place] [address] 08/18/2024Kip SoviakCurrent mild episode of major depressive disorder without prior episode F32.0[facility] [address] [place] [address]/ Edith HyltonCurrent mild episode of major depressive disorder [...] put back on a HRT referred to [facility] that specilaizes in womens health and HRT [...] such as exercise, group therapy, and counseling. Plan Of Treatment No Information Insurance Providers Payer Name Payer Address Payer Phone Subscriber Number Group Number Insured Name Patient Relationship to Insured Coverage Start Date Coverage End Date [employer] [address] [place] [address] [id number] ALANIS WILLIS Self - patient is the insured [facility] [facility] [address] [address] [place] [phone] WILLIS - patient is the [id number] 2023[facility] [address] [place] [phone] [id number] WILLIS - patient is the Medical (General) History Medical History History ICD Code depression anxiety
--- OUTSIDE RECORDS SUMMARY | 2025-05-22 07:03 | XMS_ITS | Encounter Summary ---
Author Organization [facility] Address [address] [place] [facility] [place] [address] Care Team Providers Care General Partner Name Role Phone Ange Luque MD Primary Care Provider [phone] Reason for Visit * ReasonCommentsMed Change Request Encounter Details DateTypeDepartmentCare Team (Latest Contact Info)Yhfuwxsgbmk05/19/2025Refill [facility] Rita LAZARO [address] [place] [address] Soledad Sarmiento PA [address] [place], [facility]11 Hormone disorder Social History Tobacco UseTypesPacks/DayYears UsedDateSmoking Tobacco: Never Assessed CommentsUnknownSex and Gender InformationValueDate RecordedSex Assigned at Not on fileLegal PkdBbuwfm91/15/2023 11:47 PM EDTGender IdentityNot on file Sexual OrientationNot on filedocumented as of this encounter Plan of Treatment DateTypeDepartmentCare Team (Latest Contact Info)Mlbehinkgku39/22/2026 9:00 AM ESTProcedure Visit [facility] Rita LAZARO [address] [place] [address] Soledad Sarmiento PA [address] [place], [facility]11 documented as of this encounter Visit Diagnoses Diagnosis Hormone disorder Unspecified endocrine disorder documented in this encounter Care Teams Team MemberRelationshipSpecialtyStart DateEnd Date Ange Luque MD [address] [place] [address] PCP - GeneralFamily Qbdavviy30/6/25documented as of this encounter
--- OUTSIDE RECORDS SUMMARY | 2025-05-22 07:03 | XMS_ITS | Clinical Summary ---
Author Organization [facility] Address [address] [facility] [address] [place] [address] Care Team Providers Care Senior Windows Systems Administrator Name Role Phone Ange Luque MD Primary Care Provider Allergies No known active allergies Medications MedicationSigDispense QuantityRefillsLast FilledStart DateEnd DateStatus buPROPion XL (Wellbutrin XL) 300 MG 24 hr tablet 5Active estradiol (Estrace) 0.5 MG tablet Indications:Hormone disorderTAKE 1 TABLET BY MOUTH EVERY DAY 90 tablet 5Active estradiol (Estrace) 0.5 MG tablet Indications:Hormone disorderTake 1 tablet (0.5 mg) by mouth Daily Take 1 tablet by mouth for 30 days 30 tablet Discontinued Encounters DateTypeDepartmentCare CmfuRydxcyhlxkt05/19/2025Refill [facility] [address] [place] [address] Soledad Sarmiento PA Hormone zikhnppw19/17/2025Telephone [facility] [address] [place] [address] Marie Willis MA 05/07/2025 3:20 PM ESTOffice Visit [facility]IP LA[facility]AR[facility] [address] [place] [address] Soledad Sarmiento PA Hormone disturbance; Hormone /06/2025amboo flowsheet [facility] [address] [place] [address] Soledad Sarmiento PA from Last 3 Months Social History Tobacco UseTypesPacks/DayYears UsedDateSmoking Tobacco: Never Assessed CommentsUnknownSex and Gender InformationValueDate RecordedSex Assigned at Not on fileLegal EuhRgjsoa72/15/2023 11:47 PM EDTGender IdentityNot on file Sexual OrientationNot on file Plan of Treatment DateTypeDepartmentCare Team (Latest Contact Info)Biltuozbffe28/22/2026 9:00 AM ESTProcedure Visit [facility] [address] [place] [address] Soledad Sarmiento PA [address] [place], [place] [id number] Health MaintenanceDue DateLast DoneCommentsCT Sgkoynkydcyz1975Colonoscopy 1975Colorectal Cancer Qrbckxury1975FIT-DNA1975FIT1975 FOBT1975 7636Yfwrwkhnskjji1975Pap Smear01/27/1996Cervical Cancer Ozvzhiicc64/28/2005HPV/Hrgdzq5701/26/20054249Jcbnhfzio50/28/2015COVID-19 Vaccine ( season)501/08/2021, 01/11/2021Influenza Vaccine (#1)2025 04/02/2024neumococcal Vaccine: Pediatrics (0 to 5 Years) and At-Risk Patients (6 to 64 Years)Aged OutNo longer eligible based on patient's age to complete this topic Insurance Care Teams Team MemberRelationshipSpecialtyStart DateEnd Date Ange Luque MD [address] [place] [address] PCP - GeneralFamily Xqokmvur88/6/25
--- OUTSIDE RECORDS SUMMARY | 2025-05-22 07:03 | XMS_ITS | Encounter Summary ---
Author Organization [facility] Address [address] [place] [address] Care Team Providers Care [facility] Name Role Phone Ange Luque MD Primary Care Provider [phone] Encounter Details DateTypeDepartmentCare Team (Latest Contact Info)Wbxfyzwqvtr15/17/2025Telephone [facility] [address] [place] [phone] Marie Preciado MA [address] [place] [address] Social History Tobacco UseTypesPacks/DayYears UsedDateSmoking Tobacco: Never Assessed CommentsUnknownSex and Gender InformationValueDate RecordedSex Assigned at Not on fileLegal MblTtnuhz58/15/2023 11:47 PM EDTGender IdentityNot on file Sexual OrientationNot on filedocumented as of this encounter Miscellaneous Notes * Telephone Encounter - Marie Preciado MA - 05/18/2025 1:10 PM EST Pt called asking what or where the labs are to be done. And that the buderer packet is complete. I called pt back and left detailed message on VM. To have labs drawn at [facility] that were ordered on 05/07/2025 as soon as possible and if the packet is complete to please drop it off at our office and we will give it to Mary Lopez. However, we can not go forward w/out the labs drawn. To please call office back w/any questions. documented in this encounter Plan of Treatment DateTypeDepartmentCare Team (Latest Contact Info)Sjmzaaqanhr34/22/2026 9:00 AM ESTProcedure Visit [facility] [address] [place] [address] Soledad Sarmiento PA [address] [place], [place] [phone] documented as of this encounter Visit Diagnoses Not on filedocumented in this encounter Care Teams Team MemberRelationshipSpecialtyStart DateEnd Date Ange Luque MD [address] [facility] [place] [phone] PCP - GeneralFamily Ldsbgyjz07/6/25documented as of this encounter
[2025-05-22 08:10] LABS: Free T3 2.19 pg/mL (2.18-3.98); Glucose 92 mg/dL (74-106); Thyroid Stimulating Hormone 2.133 uIU/mL (0.358-3.740)
[2025-05-22 10:55] LABS: Ferritin 13.0 ng/mL (8.0-252.0)
[2025-05-23 04:07] LABS: Sex Horm Binding Glob, Serum 71.8 nmol/L (17.3-125.0)
[2025-05-24 17:08] LABS: Calcitriol(1,25 di-OH Vit D) 38.5 pg/mL (24.8-81.5)
[2025-05-27 04:09] LABS: Serotonin, Serum 215 ng/mL (31-207)
== END 2025-05-22 07:01 | disposition home or self-care (01) ==
PROVIDERS: PCP Family Medicine; Visit Provider Physician Assistant
DX: E34.9 Endocrine disorder, unspecified (principal)
CPT/HCPCS: 36415; 82530; 82627; 82652; 82670; 82679; 82728; 82947; 83036; 83525; 84144; 84260; 84270; 84402; 84403; 84432; 84436; 84439; 84443; 84481; 84482; 84681; 86376; 86800